=== PATIENT | male | born 1975 | race Caucasian/White ===

== ENCOUNTER 2023-04-02 17:10 | Emergency (ER) | payer MEDICAID ==
[~2023-04-02] VITALS: Ht 175.3 cm; Wt 132.0 kg
[2023-04-02 17:19] VITALS: BP 105/66; PULSE 119; RESP 20; O2SAT 100
[2023-04-02] MEDS ORDERED: LIDOCAINE 1%/EPI 1:100,000 inj. 10 ML multi-dose vial IJ ONE (18:25)
[2023-04-02] MEDS ORDERED: CEPH-585 PO (19:43)
== END 2023-04-02 21:12 | disposition home or self-care (01) ==
LOC: ER 17:10
DX: S61.210A Laceration without foreign body of right index finger without damage to nail, initial encounter (principal); Z79.2 Long term (current) use of antibiotics; W23.0XXA Caught, crushed, jammed, or pinched between moving objects, initial encounter; Y93.89 Activity, other specified; Y92.89 Other specified places as the place of occurrence of the external cause; Y99.8 Other external cause status
CPT/HCPCS: 12002; 73140; 99283; A6258

== ENCOUNTER 2024-08-06 21:35 | Emergency (ER) | payer MEDICAID ==
[~2024-08-06] VITALS: Ht 177.8 cm; Wt 60.9 kg
[~2024-08-06 21:35] MED LIST: ACET-1008 PO; FOLI1TAB27 PO; LACT1CAP26 PO; LINE600T14 PO; MULT-25 PO; MUPI22OI30 TP; NO HOME MEDS; THIA50TA10 PO
[2024-08-06 21:37] VITALS: BP 112/78; PULSE 80; TEMP 98; O2SAT 95
[2024-08-06 21:43] VITALS: RESP 16
[2024-08-06] MEDS: LIDOcaine 1% W/epiNEPHrine 1:100,000 20ml vial SQ STA (21:43)
--- NOTE | 2024-08-06 22:50 | Physician Documentation ---
History of Present Illness ~ Chief Complaint: Laceration Stated Complaint: MED CLEARANCE Time Seen by MD: 21:43 Primary Medical Doctor: NONE Mode of Arrival: Ambulatory HPI Patient presents in police custody with complaints of laceration over right eye/in eyebrow as well as left ear infection with purulent drainage. Patient states he was recently prescribed antibiotic drops 10 drops once a day and states he was using them. Patient has no other concern or complaint at this time. Patient denies any fevers or chills. Tetanus Within 5 Years: Yes Medication Reconciliation Allergies: Coded Allergies: No Known Allergies (Unverified , 08/06/24) Scheduled Amox Tr/Potassium Clavulanate 875/125 MG (Augmentin 875/125 MG), 1 TAB PO Q12H Folic Acid* (Folic Acid*), 1 MG PO DAILY Lactobacillus Rhamnosus (Culturelle), 1 CAP PO BID Linezolid (Linezolid), 1 TAB PO Q12H Multivitamin with Folic Acid (Thera Tablet), 1 TAB PO DAILY Mupirocin* (Bactroban*), 1 APPLIC TP DAILY Neomycin/Polymyxin B Sulf/Hc (Uttlmcri-Nhftfhpdk-Ix Ear Susp), 4 DROP LEFT EAR Q8H Thiamine HCl (Vitamin B-1), 2 TAB PO DAILY Scheduled PRN Acetaminophen (Tylenol), 1 TAB PO Q4HPRN PRN for pain or fever, (Reported) Miscellaneous Medications Home Med List (No Home Medications), (Reported) Past Medical History Past Medical History: No Pertinent History Past Surgical History: noncontributory Alcohol Use: Alcoholic Drug Use: methamphetamine Lives In: Homeless Review of Systems Constitutional: Denies: chills, fever, weakness Eyes: Denies: pain, blurred vision ENT: Denies: ear pain, nose pain, throat pain, mouth pain Respiratory: Denies: cough, shortness of breath Cardiovascular: Denies: chest pain, palpitations Gastrointestinal: Denies: abdominal pain, nausea, vomiting Genitourinary: Denies: burning, dysuria Male Genitalia: Denies: penile discharge, testicular pain Neurological: Denies: headache, dizziness Musculoskeletal: Denies: pain, swelling Integumentary: Denies: rash, lesions Allergic/Immunologic: Denies: hives, itching Hematologic/Lymphatic: Denies: no symptoms reported Psychiatric: Denies: depression, anxiety Physical Exam Vital Signs: Temperature: 98.0, Source: Oral, Heart Rate: 80, Respiratory Rate: 16, BP: 112/78, Pulse Oximetry: 95, Weight: 60.900 Oxygen Flow Rate: 0 Physical Exam General: Awake and Alert, no acute distress. HEENT: Patient on exam has significant purulent drainage from the left ear canal and mild tenderness to palpation of the tragus. TM is not able to be visualized due to amount of purulent drainage. Conjunctiva pink, Sclera clear, Mucus Membranes moist. Neck: Supple without masses and tenderness. Resp: Unlabored. Lungs clear to auscultation bilaterally. Heart: Regular Rate and rhythm, normal S1 and S2 without murmur, rub or gallop. Abdomen: Soft and non tender no organomegaly Extremities: No cyanosis,clubbing or edema. Skin: On exam patient has small 1-2 cm laceration in right eyebrow that is not currently bleeding. Progress Results/Orders Results/Orders Completed Orders - PATRICIA BAKER PAC Lidocaine 1% W/Epi 1:100,000 (Xylocaine (08/06/24 21:43) Vital Signs 08/06/24 08/06/24 08/06/24 21:37 21:43 22:22 Temp 98.0 Pulse 80 Resp 16 16 B/P (MAP) 112/78 Pulse Ox 95 O2 Flow Rate 0 Medical Decision Making Findings Patient presents in police custody with complaints of laceration over right eye/in eyebrow as well as left ear infection with purulent drainage. Patient states he was recently prescribed antibiotic drops 10 drops once a day and states he was using them. Patient has no other concern or complaint at this time. Patient denies any fevers or chills. Patient refused suture repair of laceration over right eyebrow. Wound was irrigated and cleansed and bandaged appropriately. Patient was prescribed oral antibiotics for left ear infection topically as well as orally. Patient given dose of Augmentin in the ED tonight. Patient will return to ED with any worsening, concerning or changing symptoms. Departure Disposition: HOME / SELF CARE / HOMELESS Impression: Primary Impression: Laceration Additional Impression: Otitis externa Qualified Codes: H60.502 - Unspecified acute noninfective otitis externa, left ear Condition: Improved Discharge Instructions: Laceration Care, Adult, [id number] Additional Instructions: Patient is medically cleared for incarceration. Patient refused suture repair of laceration over right eyebrow. Wound was irrigated and cleansed and bandaged appropriately. Patient was prescribed oral antibiotics for left ear infection topically as well as orally. Patient given prescription of Augmentin 5/125 mg one tab twice a day for 10 days. Along with polymyxin/neomycin/hydrocortisone otic drops, 3-4 drops t.i.d. in the left ear x 10 days, sent to patient pharmacy at [facility]. Patient will return to ED with any worsening, concerning or changing symptoms. Referrals: NO PRIMARY CARE PROVIDER (PCP) Prescriptions Neomycin/Polymyxin B Sulf/Hc (Raaonpdl-Dduhyxwqf-Oc Ear Susp) 3.5 Mg/Ml-10,000 Unit/Ml-1 % Drops.susp 4 DROP LEFT EAR Q8H for 5 Days, #10 ML 0 Refills Prov: PATRICIA BAKER 08/06/24 Amox Tr/Potassium Clavulanate 875/125 MG (Augmentin 875/125 MG) 875 Mg-125 Mg Tablet 1 TAB PO Q12H for 10 Days, #20 TAB Prov: PATRICIA BAKER 08/06/24 Signature Scribe Signature: No scribe Attestation: No scribe PATRICIA BAKER August 06, 2024 22:50
[2024-08-06] MEDS ORDERED: NEOM10DR45 LEFT EAR (23:09)
[2024-08-06] MEDS ORDERED: AMOX-580 PO (23:09)
== END 2024-08-06 23:34 | disposition home or self-care (01) ==
LOC: ER 21:36
DX: S01.111A Laceration without foreign body of right eyelid and periocular area, initial encounter (principal); H60.392 Other infective otitis externa, left ear; F15.90 Other stimulant use, unspecified, uncomplicated; F10.90 Alcohol use, unspecified, uncomplicated; Z59.00 Homelessness unspecified; Z79.899 Other long term (current) drug therapy; Y90.9 Presence of alcohol in blood, level not specified; X58.XXXA Exposure to other specified factors, initial encounter; Y93.89 Activity, other specified; Y92.89 Other specified places as the place of occurrence of the external cause; Y99.8 Other external cause status
CPT/HCPCS: 99283